=== PATIENT | male | born 1965 | race Caucasian/White ===

== ENCOUNTER 2019-06-17 06:02 | Emergency (ER) | payer MEDICAID ==
[~2019-06-17] VITALS: Ht 172.7 cm; Wt 75.3 kg
[2019-06-17 06:13] VITALS: BP 142/99
== END 2019-06-17 07:33 | disposition home or self-care (01) ==
LOC: ED 07:14
DX: S01.412A Laceration without foreign body of left cheek and temporomandibular area, initial encounter (principal); M54.12 Radiculopathy, cervical region; Z72.89 Other problems related to lifestyle; W20.8XXA Other cause of strike by thrown, projected or falling object, initial encounter; Y93.89 Activity, other specified; Y92.89 Other specified places as the place of occurrence of the external cause; Y99.8 Other external cause status
CPT/HCPCS: 12051; 70486; 99284

== ENCOUNTER 2020-05-11 12:06 | Emergency (ER) | payer MEDICAID ==
[~2020-05-11] VITALS: Ht 175.3 cm; Wt 70.0 kg
--- NOTE | 2020-05-11 12:09 | NUR ---
PATIENT ARRIVED BY PRIVATE VEHICLE. 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 UNABLE TO BEAR WEIGHT AT THIS TIME. NO OBVIOUS DEFORMITIES AT THIS TIME. ED MD AT BEDSIDE FOR ASSESSMENT. DENIES PAIN IN BACK OR NECK. SLIGHT NUMBNESS/TINGLING IN RIGHT LEG/FOOT. CONTINUOUS MONITORING IN PLACE. PATIENT VSS AT THIS TIME.
--- NOTE | 2020-05-11 12:10 | NUR ---
Late Entry: Patient assisted out of car by multiple staff members. Unable to bear weight and assisted to wheelchair. Patient thankful. Patient denies any ETOH or drug use today.
--- NOTE | 2020-05-11 12:16 | NUR ---
PAIN MEDS ORDERED DILAUDID 1MG TO BE ADMINISTERED
[2020-05-11] MEDS ORDERED: HYDROmorphone 1 MG/ML, 1ML INJ ONE ×2 (12:17→13:49)
[2020-05-11] MEDS: HYDROmorphone 1 MG/ML, 1ML INJ IVPush PRN ×2 (12:21→13:52)
[2020-05-11] MEDS ORDERED: SODIUM CHLORIDE FLUSH 10ML SYR IVF ONE (12:30)
[2020-05-11] MEDS ORDERED: PLEASE ENTER HEIGHT AND WEIGHT MC SCH (12:30)
--- NOTE | 2020-05-11 12:53 | NUR ---
Patient to xray than to room 17 this RN to give bedside report to Lexis HENLEY
--- NOTE | 2020-05-11 12:55 | NUR ---
PT IN XRAY AT THIS TIME.
--- NOTE | 2020-05-11 13:20 | NUR ---
PT BACK TO ROOM FROM XRAY AT THIS TIME.
--- NOTE | 2020-05-11 13:26 | NUR ---
MOUTH SWAB GIVEN AT THIS TIME PER REQUEST.
--- NOTE | 2020-05-11 13:46 | NUR ---
PT REQUESTING MORE PAIN MEDS AT THIS TIME. EDMD NOTIFIED.
--- NOTE | 2020-05-11 13:59 | NUR ---
PT MEDICATED PER EMAR. PT TOLERATED WELL. PT'S AOX4. RESPS EVEN AND UNLABORED.
[2020-05-11] MEDS ORDERED: HYDROmorphone 1 MG/ML, 1ML INJ IV ONE (14:00)
[2020-05-11 14:39] VITALS: BP 150/124
--- NOTE | 2020-05-11 14:43 | NUR ---
EDMD AT BEDSIDE TO EXPLAIN ALL RESULTS AT THIS TIME.
--- NOTE | 2020-05-11 15:15 | NUR ---
PT AGITATED AND STATED"I NEED TO TALK TO HR PEOPLE. PLEASE CALL HR NOW." THIS RN ATTEMPTED TO DEESCALATE PT. PT VERBALLY UNDERSTANDING AT THIS TIME.
[2020-05-11] MEDS ORDERED: MIDAZOLAM 1 MG/ML, 2ML ONE (15:16)
[2020-05-11] MEDS ORDERED: FENTANYL PF 100 MCG/2ML ONE (15:17)
[2020-05-11] MEDS ORDERED: CEFAZOLIN 1,000 MG ONE ×2 (15:20)
[2020-05-11] MEDS ORDERED: PROPOFOL 10 MG/ML, 20ML ONE (15:20)
[2020-05-11] MEDS ORDERED: SUCCINYLCHOLINE 20 MG/ML, 10ML ONE (15:20)
[2020-05-11] MEDS ORDERED: SODIUM CHLORIDE 0.9% PF 10ML ONE (15:20)
[2020-05-11] MEDS ORDERED: LIDOCAINE-MPF 2% ,5ML ONE (15:20)
[2020-05-11] MEDS ORDERED: PROMETHAZINE 25 MG/ML, 1ML IVPush PRN (15:30)
[2020-05-11] MEDS ORDERED: FENTANYL PF 100 MCG/2ML IV PRN (15:30)
[2020-05-11] MEDS ORDERED: HYDROmorphone 1 MG/ML, 1ML INJ IVPush PRN (15:30)
[2020-05-11] MEDS ORDERED: ONDANSETRON 2MG/ML, 2ML IVPush PRN (15:30)
[2020-05-11] MEDS ORDERED: ACETAMINOPHEN 325 MG TABLET PO PRN (15:30)
[2020-05-11] MEDS ORDERED: MEPERIDINE/PF 25MG/0.5ML IVPush PRN (15:30)
[2020-05-11] MEDS ORDERED: OXYcodone 5 MG/5 ML ORAL.SOL UDC PO PRN (15:30)
[2020-05-11] MEDS ORDERED: LABETALOL 5MG/ML, 20ML IV PRN (15:30)
[2020-05-11] MEDS ORDERED: hydrALAzine 20 MG/ML, 1ML IV PRN (15:30)
[2020-05-11] MEDS ORDERED: EPHEDRINE 50 MG/ML, 1ML IVPush PRN (15:30)
--- NOTE | 2020-05-11 15:30 | NUR ---
This RN supervisor riveting at bedside to do service recovery. Patient schedulded for surgery for 30 minutes. Patient wanting to go AMA but can not walk. Patient states he wants to go to [facility] for care because the staff have been "very dissimive". Reminded patient this RN Product Sales Engineer started his care earlier. Patient stated "people became rude after i came to this new room". patient angry and verbally aggressive. Asked patient [facility] since [facility] son dropped him off and he can't walk. Son no longer at bedside. Explained to patient that I would follow up on concerns with REP and their "dissmisve behavior" and that he is schedulded for surgery in 30 minutes. Explained risks vs benefits of leaving AMA. patient concnered he has to take care of his eldelry dad at home and has to get dentures fitted tomorrow. Explained to patient has a very bad fracture and needs surgery. 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 Patient states we aren't taking care of him because he is so thirsty and he has been drinking his ensure even though we said nothing to eat or drink. Patient appears to be paranoid noted with verbal outbursts. Allowed Lexis ferreira RN to remove IV tip intact. When asking patient for speficic examples of how were dissmesive patient was unable to give examples. Patient states he wants another room. Multiple attempts to ensure patients saftey while at [facility]. Multiple attempts to offer patient reassurance that he is schedulded for surgery. Patient request to leave. Offered to call family for patient to get a ride. Patient provided sisters number. This RN to call patients sister in room with ke sister on speakerphone. Patients sister called patient's son to pick him up. Patient wheeled to front lobby per his request. Security present.
--- NOTE | 2020-05-11 15:42 | NUR ---
PT EDUCATED REGARDING NPO STATUS FROM EDMD/THIS RN D/T SX. PT DRUNK SOME FLUIDS FROM HIS BELONGING BAG AT THIS TIME. THIS RN NOTIFIED EDMD. EDMD AT BEDSIDE TO EXPLAIN POC(INCLUDING NPO STATUS). AFTER EDMD LEFT ROOM, PT AGITATED, ATTEMPTED TO GET OUT OF BED, AND STATED "I'M LEAVING. I DON'T LIKE THIS ROOM. I NEED TO GO TO [facility]. I DON'T LIKE PEOPLE HERE IN THIS HOSPITAL." THIS RN NOTIFIED EDMD, TUBE WINDER HAND AND MARINE PHOTOGRAPHER. MARINE PHOTOGRAPHER AND THIS RN ATTEMPTED TO DEESCALATE PT AND EXPLAINED ALL RESULTS AND SITUATION. PT STILL STATED " I NEED TO LEAVE. PLEASE CALL CAB OR CALL MY SON TO PICK ME UP." SUPERCISOR CALLED HIS FAMILY MEMBER IN FRONT OF PT. THIS RN ASSISTED HIM TO WHEELCHAIR. CRUTCHES GIVEN. EMT/THIS RN WHEELED HIM TO ED ENTRANCE AT THIS TIME.
--- NOTE | 2020-05-11 16:00 | NUR ---
CLUB CONCIERGE EXPLAINED POC AGAIN IN FRONT OF ED ENTRANCE. PT BACK TO TRAUMA 1 NOW.
--- NOTE | 2020-05-11 16:03 | NUR ---
Rolly Narayan [phone]
--- NOTE | 2020-05-11 16:05 | NUR ---
patient son, Seamus, to pick patient up. Explained situation to Seamus. He spoke with his dad and his dad agreed to stay for surgery. Patient offered new room and this RN to be patient's primary RN. This Rn to give report to HOT PUNCH PRESS OPERATOR and notified patient has been drinking his ensure d/t "cotton mouth". HOT PUNCH PRESS OPERATOR stated per anethesologist patient's surgery needed to be pushed back to 7pm. Explained situatin to son and patient. Patient agreed if he can go to the surgical floor to wait for surgery he would "be a good boy" and "not cause problems". Son Seamus left stated he "needed a minute to clear his head". Patient request to close the door to Trauma 01 becasue it was too noisey.
[2020-05-11 16:06] LABS: BASOPHILS # (AUTO) 0.05 x10^3/uL (0-0.1); BASOPHILS % (AUTO) 1 % (0-1); EOSINOPHILS # (AUTO) 0.13 x10^3/uL (0-0.4); EOSINOPHILS % (AUTO) 1 % (1-7); LYMPHOCYTES # (AUTO) 2.76 x10^3/uL (1-3.4); LYMPHOCYTES % (AUTO) 26 % (22-44); MD NO; MEAN CORPUSCULAR HEMOGLOBIN 30.2 pg (27.5-34.5); MEAN CORPUSCULAR HGB CONC 33.3 g/dL (33.2-36.2); MEAN CORPUSCULAR VOLUME 90.8 fL (81-97); MEAN PLATELET VOLUME 7.2 fL (7.4-10.4); MONOCYTES # (AUTO) 0.92 x10^3/uL (0.2-0.8); MONOCYTES % (AUTO) 9 % (2-9); NEUTROPHILS # (AUTO) 6.74 x10^3/uL (1.8-6.8); NEUTROPHILS % (AUTO) 64 % (42-75); PLATELET COUNT 336 x10^3/uL (130-400); RED BLOOD COUNT 4.83 x10^6/uL (4.38-5.82); RED CELL DISTRIBUTION WIDTH 13.3 % (9.4-14.8)
--- NOTE | 2020-05-11 16:10 | NUR ---
Patiet continues to ask to go smoke. Patient continues to ask if he can eat and drink. Re educated that since his initial visit we have told him nothing to eat and drink d/t possible surgery and now surgery. Patient continues to appear paranoid. AOx4 and able to answer all questions appropriately.
[2020-05-11 16:18] LABS: ANION GAP 8 mmol/L (5-15); CALCIUM 8.9 mg/dL (8.5-10.1); CHLORIDE 106 mmol/L (98-107); CREATININE 0.95 mg/dL (0.7-1.3)
--- NOTE | 2020-05-11 16:29 | NUR ---
TERMITE TREATER HELPER: PT ABLE TO PULL HIMSELF OUT TO THE [facility]. "I WANT TO GO OUT TO SMOKE. I'M TIRED OF BEING IN THAT ROOM WITHOUT ANY AIR. I'LL CRAWL ON THE FLOOR IF I HAVE TO" PT INSISTENT ON LEAVING. "I'LL CRAWL TO [facility] IF I HAVE TO. UNLOCK THE W/C SO I CAN GO. I'M TIRED OF NOTHING TO EAT. I WANT TO SMOKE" DISCUSSED WE CAN ASK FOR NICOTINE PATCH. PT DECLINED. PTS SON CALLED BY [facility]. PTS SON TO PICK PT UP.
--- NOTE | 2020-05-11 16:40 | NUR ---
Patient in the middle of the hallway stating he can't believe we wont give him anything to drink. Patient states he has cotton mouth and we are horrible staff here. Patient continues to state he wants to go to [facility]. Called son and informed him of patients wishes. patient escorted to front by security and son picked him up there.
== END 2020-05-11 17:02 | disposition left against medical advice (07) ==
LOC: ED 14:13 → ORIP 15:15 → UNDOADMIN 15:15
DX: G89.11 Acute pain due to trauma (principal); M79.661 Pain in right lower leg; M79.662 Pain in left lower leg; W13.8XXA Fall from, out of or through other building or structure, initial encounter; Y93.89 Activity, other specified; Y92.89 Other specified places as the place of occurrence of the external cause; Y99.8 Other external cause status
CPT/HCPCS: 36415; 72072; 72110; 72190; 73590; 73610; 73630; 80048; 80307; 85025; 96374; 96376; 99285; J0330; J0690; J1170; J2704; J3490; J2250; J3010